=== PATIENT | female | born 1990 | race Hispanic/Latino ===

== ENCOUNTER 2020-11-24 07:32 | Outpatient (CLI) | payer OTHER ==
--- NOTE | 2020-11-24 09:06 | MRI ---
Exam: Brain MRI with and without contrast HISTORY: Hyperreflexia COMPARISON: 11/24/2020 FINDINGS: Gradient echo sequence: No hemorrhage Calvarium: Appropriate T1 marrow signal intensity Midline brain parenchyma: Unremarkable Cerebrum:No parenchymal mass, mass effect or midline shift. Brain volume is age-appropriate. Cortical olivas-white matter differentiation is preserved. Stable nonspecific subcortical hyperintensity in the left frontal lobe, 0.4 cm, right frontal lobe and right frontal periventricular white matter, 0.7 cm. Ventricles: No evidence of hydrocephalus. Sinuses and mastoid air cells: Adequate aeration Diffusion: Central arterial flow is maintained. Absent restricted diffusion. Postcontrast images: No pathologic enhancement of the brain parenchyma. IMPRESSION: 1. Absent restricted diffusion. 2. No pathologic enhancement of the brain parenchyma. 3. Essentially stable white matter hyperintensities without associated restricted diffusion or enhanc ement. Differential considerations are similar to the previous exam. Correlate clinically. Transcribed Date/Time: 11/24/2020 9:08 AM
[2020-11-24] MEDS ORDERED: Magnevist 469MG/ML 20 ML VIAL ONE (10:51)
== END 2020-11-24 07:33 | disposition home or self-care (01) ==
LOC: BICMRI 07:32
PROVIDERS: ATTEND Psychiatry & Neurology Neurology
DX: R29.2 Abnormal reflex (principal)
CPT/HCPCS: 70553; A9579